=== PATIENT | male | born 1985 | race Caucasian/White ===

== ENCOUNTER 2020-02-27 12:00 | Emergency (ER) | payer BC ==
[~2020-02-27 12:00] MED LIST: Sodium Chloride 0.9% 1,000 ML IV ONE; Sodium Chloride 0.9% 10 ML Syringe FLUSH PRN
[2020-02-27] MEDS ORDERED: Etomidate 2 MG/ML 20 ML SDV IVPUSH ONE (12:01)
[2020-02-27 12:41] LABS: ANION GAP 22.8 mEq/L (7-13); CHLORIDE,CL 100 mmol/L (98-107); SODIUM,NA 139 mmol/L (136-145)
[2020-02-27 12:50] LABS: O2 DELIVERY DEVICE RESUSCITATION BAG
[2020-02-27 12:51] LABS: ALLEN TEST PERFORMED; BASE EXCESS ARTERIAL -7 mmol/L ((-2)-(+3)); BICARBONATE,ARTERIAL 21.1 mmol/L (22-26); O2 SATURATION ARTERIAL 97 % (95-100); PCO2 ARTERIAL 54 mmHg (35-45); PO2 ARTERIAL 130 mmHg (70-100)
--- NOTE | 2020-02-27 12:55 | CR ---
PROCEDURE INFORMATION: Exam: XR Chest, 1 View Exam date and time: 02/27/2020 12:34 PM Age: 34 years old Clinical indication: Device placement; Ett placement (vent status); Additional info: Et tube placement TECHNIQUE: Imaging protocol: XR of the chest Views: 1 view. COMPARISON: No relevant prior studies available. FINDINGS: Tubes, catheters and devices: Endotracheal tube terminates 5.5 cm above the cheri. Nasogastric tube is in place. The tip of the tube is not included within the margin of the image but is below the level of the diaphragm. Lungs: Unremarkable. No consolidation. Pleural space: Unremarkable. No pleural effusion. No pneumothorax. Heart/Mediastinum: Unremarkable. No cardiomegaly. Bones/joints: Unremarkable. IMPRESSION: Endotracheal tube terminates 5.5 cm above the cheri.
--- NOTE | 2020-02-27 13:02 | EDM.PDOC ---
Scribed by Danni Cage 02/27/20 1232 for Dario Valdez MD ED HPI GENERAL MEDICAL PROBLEM - General Chief Complaint: Neurological Problem Stated Complaint: AMBULANCE Time Seen by Provider: 02/27/20 12:00 Source of Information: Reports: Patient, EMS, EMS Notes Reviewed, RN, RN Notes Reviewed - History of Present Illness INITIAL COMMENTS - FREE TEXT/NARRATIVE: Patient is a 34-year-old patient who arrives to ED by [facility] with intercept from [facility] with status epilepticus. Pt's father report pt has no history of seizures. Pt was well this morning and was with his father. Father reports pt was started on Effexor recently for anxiety. Pt has Hx of opiate addiction and use an OTC product called Kratom frequently to help stay off of opiates. Pt's father reports the Kratom turned the pt's face permanently blue. EMS found the pt actively seizing with father reporting continuous seizure of 8 minutes duration. EMS gave Ativan 4mg IVP with seizure stopping for only about 1 minute, then seizure returned. EMS gave Ativan 2mg IVP and arrived to the ER with the pt in active seizure. On arrival to the ER I gave Diazepam 10mg IVP and Keppra 3000mg IV bolus with resolution of the status epilepticus. Pt was then intubated by me with 7.5F ET tube and Etomidate 24mg IVP, followed by initiation of Propofol drip. [facility] unable to accept pt. Pt accepted to [facility] in [place] by Dr. Keith, transferred [facility]. Onset: Today, Sudden Duration: Constant Severity: Severe Treatments [employer]: Reports: IV/IO, Other Medication(s) Past Medical History Psychiatric History: Reports: Addiction (Opiate), Anxiety, Panic Attack Social & Family History - Family History Family Medical History: Unobtainable - Alcohol Use Alcohol Use History: Yes Alcohol Use Frequency: Socially - Recreational Drug Use Recreational Drug Use: Yes Drug Use in Last 12 Months: No Recreational Drug Type: Reports: Heroin, Oxycodone Recreational Drug Use Frequency: Not Used In Over 1 Year ED ROS GENERAL - Review of Systems Review Of Systems: Unable To Obtain Reason Not Obtained: Unresponsive pt - Physical Exam Exam: See Below Exam Limited By: Other (Status epilepticus) General Appearance: Severe Distress Eye Exam: Bilateral Eye: PERRL (4mm sluggishly reactive) Nose: Normal Inspection Throat/Mouth: Normal Oropharynx, Other (Postictal breathing, no obvious tongue biting) Head Exam: Atraumatic, Normocephalic Neck: Normal Inspection Respiratory/Chest: No Respiratory Distress, No Accessory Muscle Use, Decreased Breath Sounds, Crackles Cardiovascular: Regular Rate, Rhythm, Tachycardia Neuro Exam (Abbreviated): Unresponsive, Other (Status epilepticus) Extremities: Other (Atraumatic) Skin Exam: Cool, Cyanosis (blue discoloration to face and B/L forearms, face chronic per father, forearms acute discoloration per Hx), Diaphoretic. No: Jaundice, Petechiae ED PROCEDURES - Endotracheal Intubation Time of Intubation: 12:10 ET Intubation Indication: Airway Protection, Other (Status epi) Pre-Oxygenation: Assisted with BVM, 100% FiO2 Anesthesia Meds: Etomidate, Other (Diazepam) Placement: Orotracheal, Cuffed Cords Visualized: Yes ETT Size In mm: 7.5 Number of Attempts: 1 Confirmed By: CO2 Indicator, Bilateral Breath Sounds, Chest Xray Tube Secured By: By RT Course - Orders/Labs/Meds Orders: Active Orders 24 hr Category Date Time Status Blood Glucose Check, Bedside [RC] ONETIME Care 02/27/20 11:46 Active Peripheral IV Care [RC] . DIRECTED Care 02/27/20 11:46 Active Chest 1V Frontal [CR] Stat Exams 02/27/20 12:28 Ordered ABG [BLOOD GAS ARTERIAL] [BG] Stat Lab 02/27/20 12:28 Ordered CBC WITH AUTO DIFF [HEME] Stat Lab 02/27/20 12:09 Results COMPREHENSIVE METABOLIC PN,CMP [CHEM] Stat Lab 02/27/20 12:09 Received CORONAVIRUS COVID-19 RAPID PCR [MOLEC] Stat Lab 02/27/20 12:35 Received ETHANOL BLOOD MEDICAL [CHEM] Stat Lab 02/27/20 12:09 Received MAGNESIUM [CHEM] Stat Lab 02/27/20 12:09 Received MANUAL DIFFERENTIAL QA/NC [HEME] Stat Lab 02/27/20 12:09 Results TSH ULTRASENSITIVE [CHEM] Stat Lab 02/27/20 12:09 Received UA W/MICROSCOPIC [URIN] Stat Lab 02/27/20 12:21 Results Sodium Chloride 0.9% [Normal Saline] 1,000 ml Med 02/27/20 11:44 Active IV .BOLUS Sodium Chloride 0.9% [Saline Flush] Med 02/27/20 11:46 Active 10 ml FLUSH ASDIRECTED PRN Peripheral IV Insertion Adult [OM.PC] Stat Oth 02/27/20 11:45 Ordered Seizure Precautions [OM.PC] Routine Oth 02/27/20 11:45 Ordered Medication Orders Sodium Chloride (Normal Saline) 1,000 mls @ 999 mls/hr IV .BOLUS ONE Stop: 02/27/20 12:44 Sodium Chloride (Saline Flush) 10 ml FLUSH ASDIRECTED PRN PRN Reason: Keep Vein Open Labs: Laboratory Tests 02/27/20 02/27/20 02/27/20 Range/Units 12:09 12:21 12:21 WBC 15.5 H (5.0-10.0) 10^3/uL RBC 4.49 L (4.6-6.2) 10^6/uL Hgb 13.9 L (14.0-18.0) g/dL Hct 43.5 (40.0-54.0) % MCV 96.9 (80-100) fL MCH 31.0 (27.0-34.0) pg MCHC 32.0 L (33.0-35.0) g/dL Plt Count 300 (150-450) 10^3/uL Neut % (Auto) 53.0 (42.2-75.2) % Lymph % (Auto) 37.5 (20.5-50.1) % [place] % (Auto) 7.1 (2-8) % Eos % (Auto) 1.9 (1.0-3.0) % Baso % (Auto) 0.5 (0.0-1.0) % Add Manual Diff Yes Urine Color Yellow (YELLOW) Urine Appearance Clear (CLEAR) Urine pH 6.5 (5.0-9.0) Ur Specific [place] >= 1.030 (1.005-1.030) Urine Protein 100 H (NEGATIVE) Urine Glucose (UA) Negative (NEGATIVE) Urine Ketones Negative (NEGATIVE) Urine Occult Blood Small H (NEGATIVE) Urine Nitrite Negative (NEGATIVE) Urine Bilirubin Negative (NEGATIVE) Urine Urobilinogen 0.2 (0.2-1.0) mg/dL Ur Leukocyte Esterase Negative (NEGATIVE) Urine Opiates Screen Negative (NEGATIVE) Ur Oxycodone Screen Negative (NEGATIVE) Urine Methadone Screen Negative (NEGATIVE) Ur Barbiturates Screen Negative (NEGATIVE) U Tricyclic Antidepress Negative (NEGATIVE) Ur Phencyclidine Scrn Negative (NEGATIVE) Ur Amphetamine Screen Negative (NEGATIVE) U Methamphetamines Scrn Negative (NEGATIVE) Urine MDMA Screen Negative (NEGATIVE) U Benzodiazepines Scrn Positive H (NEGATIVE) Urine Cocaine Screen Negative (NEGATIVE) U Marijuana (THC) Screen Negative (NEGATIVE) Meds: Medications Generic Name Dose Route Start Last Admin Trade Name Freq PRN Reason Stop Dose Admin Sodium Chloride 1,000 mls @ 999 mls/hr 02/27/20 11:44 Normal Saline IV 02/27/20 12:44 .BOLUS ONE Sodium Chloride 10 ml 02/27/20 11:46 Saline Flush FLUSH ASDIRECTED PRN Keep Vein Open Discontinued Medications Generic Name Dose Route Start Last Admin Trade Name Freq PRN Reason Stop Dose Admin Diazepam 10 mg 02/27/20 11:48 Valium IVPUSH 02/27/20 11:49 ONETIME ONE Levetiracetam 3,000 mg/ Sodium 130 mls @ 400 mls/hr 02/27/20 11:44 Chloride IV 02/27/20 11:58 ONETIME ONE - Radiology Interpretation Free Text/Narrative:: [facility] Final Radiology Report Call: [phone] assistance Online chat: [email or web address] Name: SPEEDY NGUYỄN Age: 34Years M Date: 02/27/2020 SSN: -- : [id number] Study: CR CHEST 1V FRONTAL Requesting Physician: DARIO VALDEZ Images: 1 Addl Studies: Provided Clinical History: ET tube placement Contrast: Contrast Medium: Contrast Amount: Contrast Method: CONFIDENTIALITY STATEMENT This report is intended only for use by the referring physician, and only in accordance with law. If you received this in error, call [phone]. Page 1 of 1 PROCEDURE INFORMATION: Exam: XR Chest, 1 View Exam date and time: 02/27/2020 12:34 PM Age: 34 years old Clinical indication: Device placement; Ett placement (vent status); Additional info: Et tube placement TECHNIQUE: Imaging protocol: XR of the chest Views: 1 view. COMPARISON: No relevant prior studies available. FINDINGS: Tubes, catheters and devices: Endotracheal tube terminates 5.5 cm above the cheri. Nasogastric tube is in place. The tip of the tube is not included within the margin of the image but is below the level of the diaphragm. Lungs: Unremarkable. No consolidation. Pleural space: Unremarkable. No pleural effusion. No pneumothorax. Heart/Mediastinum: Unremarkable. No cardiomegaly. Bones/joints: Unremarkable. IMPRESSION: Endotracheal tube terminates 5.5 cm above the cheri. Thank you for allowing us to participate in the care of your patient. Dictated and Authenticated by: Frank Trent MD 02/27/2020 12:54 PM Central Time ([place] & [place]) Departure - Departure Time of Disposition: 12:30 Disposition: DC/Tfer to [facility] 02 Condition: Serious, Critical Clinical Impression: Status epilepticus - Discharge Information *PRESCRIPTION DRUG MONITORING PROGRAM REVIEWED*: No *COPY OF PRESCRIPTION DRUG MONITORING REPORT IN PATIENT RAYMOND: No Forms: ED Department Discharge, Interfacility Transfer EMTALA - My Orders Last 24 Hours: My Active Orders 02/27/20 11:44 Sodium Chloride 0.9% [Normal Saline] 1,000 ml IV .BOLUS 02/27/20 11:45 Peripheral IV Insertion Adult [OM.PC] Stat Seizure Precautions [OM.PC] Routine 02/27/20 11:46 Blood Glucose Check, Bedside [RC] ONETIME Peripheral IV Care [RC] . DIRECTED Sodium Chloride 0.9% [Saline Flush] 10 ml FLUSH ASDIRECTED PRN 02/27/20 12:09 CBC WITH AUTO DIFF [HEME] Stat COMPREHENSIVE METABOLIC PN,CMP [CHEM] Stat ETHANOL BLOOD MEDICAL [CHEM] Stat MAGNESIUM [CHEM] Stat MANUAL DIFFERENTIAL QA/NC [HEME] Stat TSH ULTRASENSITIVE [CHEM] Stat 02/27/20 12:21 UA W/MICROSCOPIC [URIN] Stat 02/27/20 12:28 Chest 1V Frontal [CR] Stat ABG [BLOOD GAS ARTERIAL] [BG] Stat 02/27/20 12:35 CORONAVIRUS COVID-19 RAPID PCR [MOLEC] Stat - Assessment/Plan Last 24 Hours: My Active Orders 02/27/20 11:44 Sodium Chloride 0.9% [Normal Saline] 1,000 ml IV .BOLUS 02/27/20 11:45 Peripheral IV Insertion Adult [OM.PC] Stat Seizure Precautions [OM.PC] Routine 02/27/20 11:46 Blood Glucose Check, Bedside [RC] ONETIME Peripheral IV Care [RC] . DIRECTED Sodium Chloride 0.9% [Saline Flush] 10 ml FLUSH ASDIRECTED PRN 02/27/20 12:09 CBC WITH AUTO DIFF [HEME] Stat COMPREHENSIVE METABOLIC PN,CMP [CHEM] Stat ETHANOL BLOOD MEDICAL [CHEM] Stat MAGNESIUM [CHEM] Stat MANUAL DIFFERENTIAL QA/NC [HEME] Stat TSH ULTRASENSITIVE [CHEM] Stat 02/27/20 12:21 UA W/MICROSCOPIC [URIN] Stat 02/27/20 12:28 Chest 1V Frontal [CR] Stat ABG [BLOOD GAS ARTERIAL] [BG] Stat 02/27/20 12:35 CORONAVIRUS COVID-19 RAPID PCR [MOLEC] Stat I have read and agree with the documentation that has been completed regarding this visit. By signing this record, I attest that the documentation was c ompleted in my physical presence and is an accurate record of the encounter.
== END 2020-02-27 13:00 ==
LOC: DL.ED 12:00
DX: G40.901 Epilepsy, unspecified, not intractable, with status epilepticus (principal); Z20.828 Contact with and (suspected) exposure to other viral communicable diseases
CPT/HCPCS: 31500; 36415; 36600; 71045; 80053; 80305; 80307; 81001; 82803; 82962; 83735; 84443; 85025; 87635; 96365; 96375; 99285; J1953; J3360; J3490; J7030; J7050; U0002